=== PATIENT | male | born 1955 | race Two or more races ===

== ENCOUNTER 2019-09-15 13:24 | Outpatient (CLI) | payer OTHER | END 2019-09-15 13:47 | disposition home or self-care (01) | LOC: LAB 13:24 | DX: Z11.3 Encounter for screening for infections with a predominantly sexual mode of transmission (principal); Z12.11 Encounter for screening for malignant neoplasm of colon; Z12.5 Encounter for screening for malignant neoplasm of prostate; Z13.6 Encounter for screening for cardiovascular disorders; R53.81 Other malaise; R53.1 Weakness ==

== ENCOUNTER → 2019-09-19 | Emergency (ER) | payer OTHER | END | disposition left against medical advice (07) | LOC: ER 17:30 | DX: Z53.20 Procedure and treatment not carried out because of patient's decision for unspecified reasons (principal) ==

== ENCOUNTER 2019-09-30 17:46 | Emergency (ER) | payer OTHER ==
[~2019-09-30] VITALS: Ht 172.7 cm; Wt 70.3 kg
[2019-09-30] MEDS ORDERED: MORGIDOX100 MG PO (18:12)
== END 2019-09-30 20:53 | disposition home or self-care (01) ==
LOC: ER 17:46
DX: L02.512 Cutaneous abscess of left hand (principal)

== ENCOUNTER 2019-11-30 07:40 | Day surgery (SDC) | payer OTHER ==
[~2019-11-30 07:40] MED LIST: MORGIDOX100 MG PO
== END 2019-11-30 13:55 | disposition home or self-care (01) ==
LOC: CIR.AMB 07:40
PROVIDERS: ATTEND Anesthesiology Pain Medicine
DX: A52.13 Late syphilitic meningitis (principal); Z20.828 Contact with and (suspected) exposure to other viral communicable diseases

== ENCOUNTER 2024-01-26 13:25 | Outpatient (CLI) | payer OTHER | END 2024-01-26 13:37 | disposition home or self-care (01) | LOC: TOM 13:25 | PROVIDERS: ATTEND Internal Medicine | DX: J01.91 Acute recurrent sinusitis, unspecified (principal); H60.311 Diffuse otitis externa, right ear ==